=== PATIENT | male | born 1945 | race Two or more races ===

== ENCOUNTER 2017-11-03 17:49 | Emergency (ER) | payer MEDICAID ==
[~2017-11-03] VITALS: Ht 162.6 cm; Wt 70.3 kg
[2017-11-03] MEDS ORDERED: ONDANSETRON ODT 4 MG TAB PO ONE (19:15)
[2017-11-03 20:41] LABS: Basophils # (auto) 0 uL; Eosinophils # (auto) 0 uL; Monocytes # (auto) 0.4 uL; Red Blood Cells 5.29 10^6/uL (4.5-5.90)
[2017-11-03 20:43] LABS: Basophils % (auto) 0.2 % (0.0-2.0); Eosinophils % (auto) 0.2 % (0.0-7.0); Hematocrit 42.3 % (41.0-53.0); Lymphocytes # (auto) 0.8 uL; Mean Corpuscular Hemoglobin 26.5 pg (28.0-32.0); Mean Corpuscular Hgb Conc. 33.1 g/dL (32.0-36.0); Monocytes % (auto) 3.2 % (0.0-12.0); Neutrophils % (auto) 90.4 % (37.0-80.0); Platelet Count (auto) 279 10^3/uL (140-450); Red Cell Distribution Width 17.4 % (11.8-14.3); White Blood Cell 13.3 10^3/uL (4.4-10.8)
[2017-11-03 20:44] LABS: Albumin 3.9 g/dL (3.4-5.0); Bilirubin, Total 0.5 mg/dL (0.2-1.0); Potassium 3.9 mmol/L (3.5-5.1); Total Protein 8.1 g/dL (6.4-8.2)
[2017-11-03 21:00] LABS: INR 0.93 (0.9-1.15); Partial Thromboplastin Time 27.5 sec (23.78-33.04)
[2017-11-03 23:15] VITALS: BP 148/96
== END 2017-11-03 19:45 | disposition short-term general hospital (02) ==
LOC: ER 17:49 → EDBD 17:49 → ER 19:45
DX: S02.119A Unspecified fracture of occiput, initial encounter for closed fracture (principal); W18.39XA Other fall on same level, initial encounter; Y93.89 Activity, other specified; Y92.89 Other specified places as the place of occurrence of the external cause; Y99.8 Other external cause status
CPT/HCPCS: 36415; 70450; 72125; 80053; 85025; 85610; 85730; 99285; Q0162

== ENCOUNTER 2020-12-07 13:22 | Inpatient (IN) | payer MEDICAID ==
[~2020-12-07] VITALS: Ht 162.6 cm; Wt 71.6 kg
[2020-12-07 15:58] LABS: Basophils # (auto) 0 10 ^3/uL (0-0.2); Basophils % (auto) 0.5 % (0.0-2.0); Eosinophils # (auto) 0.2 10 ^3/uL (0-0.8); Eosinophils % (auto) 2.6 % (0.0-7.0); Hematocrit 27.3 % (41.0-53.0); Hemoglobin 8.6 g/dL (13.5-17.5); Lymphocytes # (auto) 1.7 10 ^3/uL (0.4-5.4); Lymphocytes % (auto) 21.8 % (10.0-50.0); Mean Corpuscular Hemoglobin 19.9 pg (28.0-32.0); Mean Corpuscular Hgb Conc. 31.7 g/dL (32.0-36.0); Mean Corpuscular Volume 62.9 fL (80.0-100.0); Monocytes # (auto) 0.7 10 ^3/uL (0-1.3); Monocytes % (auto) 8.3 % (0.0-12.0); Neutrophils # (auto) 5.3 10 ^3/uL (1.6-8.6); Neutrophils % (auto) 66.8 % (37.0-80.0); Nucleated Red Blood Cells % 0.1 %; Red Blood Cells 4.34 10^6/uL (4.5-5.90); Red Cell Distribution Width 19.5 % (11.8-14.3); White Blood Cell 7.9 10^3/uL (4.4-10.8)
[2020-12-07 16:17] LABS: Albumin 3.8 g/dL (3.4-5.0); Calcium 8.5 mg/dL (8.5-10.1); Potassium 3.9 mmol/L (3.5-5.1)
[2020-12-07 16:21] LABS: BUN/Creatinine Ratio 21.9; Bilirubin, Total 0.6 mg/dL (0.2-1.0); Total Protein 7.6 g/dL (6.4-8.2)
[2020-12-07] MEDS ORDERED: IOHEXOL 300 MG/ML 100ML BOTTLE IJ ONE (22:21)
[2020-12-08] MEDS ORDERED: PANTOPRAZOLE 40 MG/10 ML VIAL INJ IV ONE (00:30)
[2020-12-08] MEDS ORDERED: SODIUM CHLORIDE 0.9% 1,000 ML IV SCH (00:30)
[2020-12-08] MEDS ORDERED: ONDANSETRON HCL 4 MG/2 ML VIAL IV PRN ×2 (00:30→00:45)
[2020-12-08] MEDS ORDERED: NITROGLYCERIN 0.4 MG SL TAB SL PRN (00:45)
[2020-12-08] MEDS ORDERED: MORPHINE SULF INJ 2 MG/ML SYRINGE 1ML IV PRN (00:45)
[2020-12-08 01:13] LABS: Hemoglobin 8.5 g/dL (13.5-17.5)
[2020-12-08 01:15] LABS: Hematocrit 27.1 % (41.0-53.0)
[2020-12-08 05:36] LABS: INR 0.99 (0.9-1.15); Partial Thromboplastin Time 26.8 sec (23.0-31.2)
[2020-12-08 09:00] VITALS: BP 133/82
[2020-12-08] MEDS ORDERED: PANTOPRAZOLE 40 MG/10 ML VIAL INJ IV SCH (10:00)
[2020-12-08 12:36] VITALS: BP 143/77
[2020-12-08] MEDS ORDERED: IBUP800T26 PO (13:54)
== END 2020-12-08 16:43 | disposition left against medical advice (07) | DRG 253 ==
LOC: ER 13:22 → TELE 12-08 00:32 → TELE-WESTW 12-08 03:33
PROVIDERS: ADMIT Nurse Practitioner; ATTEND Internal Medicine Pulmonary Disease
DX: K92.2 Gastrointestinal hemorrhage, unspecified (principal); Z20.822 Contact with and (suspected) exposure to COVID-19; D62 Acute posthemorrhagic anemia; Z53.29 Procedure and treatment not carried out because of patient's decision for other reasons
CPT/HCPCS: 36415; 74177; 80053; 82270; 85014; 85018; 85025; 85610; 85730; 86850; 86900; 86901; 87426; 96361; 96374; C9113; G0378

== ENCOUNTER 2021-03-09 13:37 | Inpatient (IN) | payer MEDICAID ==
[~2021-03-09] VITALS: Ht 160 cm; Wt 72.2 kg
[~2021-03-09 13:37] MED LIST: IBUP800T26 PO
[2021-03-09] MEDS ORDERED: ASPirin 81 mg TAB PO ONE (14:00)
[2021-03-09 14:19] LABS: Basophils # (auto) 0 10 ^3/uL (0-0.2); Eosinophils # (auto) 0 10 ^3/uL (0-0.8); Eosinophils % (auto) 0.2 % (0.0-7.0); Lymphocytes # (auto) 0.7 10 ^3/uL (0.4-5.4); Monocytes # (auto) 0.4 10 ^3/uL (0-1.3); Nucleated Red Blood Cells % 0.2 %; Red Blood Cells 5.07 10^6/uL (4.5-5.90); Red Cell Distribution Width 19.2 % (11.8-14.3)
[2021-03-09 14:22] LABS: Basophils % (auto) 0.5 % (0.0-2.0); Hematocrit 29.3 % (41.0-53.0); Hemoglobin 8.8 g/dL (13.5-17.5); Lymphocytes % (auto) 11.9 % (10.0-50.0); Mean Corpuscular Hemoglobin 17.4 pg (28.0-32.0); Mean Corpuscular Hgb Conc. 30.2 g/dL (32.0-36.0); Mean Corpuscular Volume 57.8 fL (80.0-100.0); Monocytes % (auto) 6.4 % (0.0-12.0); Neutrophils # (auto) 4.8 10 ^3/uL (1.6-8.6); White Blood Cell 5.9 10^3/uL (4.4-10.8)
[2021-03-09 15:05] LABS: Albumin 3.8 g/dL (3.4-5.0); Anion Gap 6 (5-15); Blood Urea Nitrogen 16 mg/dL (7-18); Calcium 8.5 mg/dL (8.5-10.1); Carbon Dioxide 23 mmol/L (21-32); Chloride 106 mmol/L (98-107); Glucose 140 mg/dL (74-106); Potassium 3.8 mmol/L (3.5-5.1); Sodium 135 mmol/L (136-145)
[2021-03-09 15:24] LABS: Alanine Aminotransferase 28 U/L (16-61); Alkaline Phosphatase 91 U/L (45-117); Aspartate Aminotransferase 31 U/L (15-37); BUN/Creatinine Ratio 12.2; Bilirubin, Total 0.7 mg/dL (0.2-1.0); GFR African American 68 mL/min; GFR Non-African American 57 mL/min
[2021-03-09] MEDS ORDERED: ACETAMINOPHEN 500 MG TAB PO PRN (18:30)
[2021-03-09] MEDS ORDERED: HYDROcodone-ACET 5/325MG TAB PO PRN (18:30)
[2021-03-09] MEDS ORDERED: hydrALAZINE HCL 20 MG/ML VL IV PRN (18:30)
[2021-03-09] MEDS ORDERED: NITROGLYCERIN 0.4 MG SL TAB SL PRN (18:30)
[2021-03-09] MEDS ORDERED: ONDANSETRON HCL 4 MG/2 ML VIAL IV PRN (18:30)
[2021-03-09] MEDS ORDERED: MORPHINE SULFATE INJECTION 2 MG/ML SYRG IV PRN ×2 (18:30)
[2021-03-09 19:08] LABS: % Iron Saturation 3.2 % (20-55)
[2021-03-09] MEDS: ATORVASTATIN 20 MG TAB PO SCH (23:34)
[2021-03-09] MEDS: METOPROLOL TARTRATE 25 MG TAB PO SCH (23:35)
[2021-03-10 01:50] VITALS: BP 114/82
[2021-03-10 04:45] VITALS: BP 103/63
[2021-03-10 06:14] LABS: Basophils # (auto) 0 10 ^3/uL (0-0.2); Eosinophils # (auto) 0.2 10 ^3/uL (0-0.8); Lymphocytes # (auto) 1.2 10 ^3/uL (0.4-5.4); Mean Corpuscular Volume 58.3 fL (80.0-100.0); Monocytes # (auto) 0.6 10 ^3/uL (0-1.3)
[2021-03-10 06:18] LABS: Basophils % (auto) 0.5 % (0.0-2.0); Eosinophils % (auto) 3.3 % (0.0-7.0); Hematocrit 25.7 % (41.0-53.0); Lymphocytes % (auto) 24.4 % (10.0-50.0); Mean Corpuscular Hemoglobin 18.2 pg (28.0-32.0); Mean Corpuscular Hgb Conc. 31.2 g/dL (32.0-36.0); Monocytes % (auto) 11.8 % (0.0-12.0); Nucleated Red Blood Cells % 0.2 %; Red Blood Cells 4.41 10^6/uL (4.5-5.90); Red Cell Distribution Width 19.1 % (11.8-14.3)
[2021-03-10 06:28] LABS: Partial Thromboplastin Time 28.8 sec (23.6-33.0)
[2021-03-10 06:46] LABS: Anion Gap 8 (5-15); BUN/Creatinine Ratio 17.8; Blood Urea Nitrogen 16 mg/dL (7-18); Calcium 8.3 mg/dL (8.5-10.1); Carbon Dioxide 23 mmol/L (21-32); Chloride 106 mmol/L (98-107); GFR African American 106 mL/min; GFR Non-African American 87 mL/min; Glucose 122 mg/dL (74-106); Potassium 3.7 mmol/L (3.5-5.1); Sodium 137 mmol/L (136-145)
[2021-03-10] MEDS: ASPirin-EC 81 mg tab PO SCH (09:51)
[2021-03-10] MEDS: METOPROLOL TARTRATE 25 MG TAB PO SCH ×2 (09:52→21:56)
[2021-03-10] MEDS: LISINOPRIL 10 MG TAB PO SCH (09:52)
[2021-03-10] MEDS: SODIUM FERR GLUC 62.5MG/5ML 125 MG in SODIUM CHL 0.9% 100 ML IV SCH (13:33)
[2021-03-10] MEDS: ATORVASTATIN 20 MG TAB PO SCH (21:56)
[2021-03-10 22:00] VITALS: BP 130/74
[2021-03-11] VITALS (10 sets, daily range): BP systolic 108–131; BP diastolic 68–77
[2021-03-11] MEDS ORDERED: LIDOCAINE 2%HCL (LOCAL ANESTH.) INJ 20ML MDV ONE (08:49)
[2021-03-11] MEDS ORDERED: IOHEXOL 350 MG/ML 100ML IJ ONE (08:49)
[2021-03-11] MEDS ORDERED: ANGIOMAX 250 MG VIAL IV ONE (09:16)
[2021-03-11] MEDS ORDERED: fentaNYL CITRATE 100 MCG/2 ML VL ONE (09:17)
[2021-03-11] MEDS ORDERED: MIDAZOLAM HCL 2MG/2ML 2ml VIAL (1mg/ml) ONE (09:17)
[2021-03-11] MEDS ORDERED: SODIUM CHL 0.9% 0 ML ONE (09:17)
[2021-03-11] MEDS: ASPirin-EC 81 mg tab PO SCH (12:21)
[2021-03-11] MEDS: LISINOPRIL 10 MG TAB PO SCH (12:22)
[2021-03-11] MEDS: METOPROLOL TARTRATE 25 MG TAB PO SCH ×2 (12:27→22:01)
[2021-03-11] MEDS: SODIUM FERR GLUC 62.5MG/5ML 125 MG in SODIUM CHL 0.9% 100 ML IV SCH (12:50)
[2021-03-11] MEDS: ATORVASTATIN 20 MG TAB PO SCH (22:02)
[2021-03-12 05:00] VITALS: BP 113/65
[2021-03-12 08:26] VITALS: BP 114/69
[2021-03-12] MEDS: ASPirin-EC 81 mg tab PO SCH (10:00)
[2021-03-12] MEDS: METOPROLOL TARTRATE 25 MG TAB PO SCH (10:00)
[2021-03-12] MEDS ORDERED: ATOR40TA52 PO (10:09)
[2021-03-12] MEDS ORDERED: FERR200T3 PO (10:10)
[2021-03-12] MEDS ORDERED: PANT40TA2 PO (10:11)
[2021-03-12] MEDS ORDERED: LISI2.5T47 PO (10:12)
[2021-03-12] MEDS ORDERED: METF-489 PO (10:12)
[2021-03-12 10:37] LABS: Eosinophils # (auto) 0.2 10 ^3/uL (0-0.8); Hemoglobin 8.5 g/dL (13.5-17.5); Lymphocytes # (auto) 1.4 10 ^3/uL (0.4-5.4); Monocytes # (auto) 0.5 10 ^3/uL (0-1.3); Nucleated Red Blood Cells % 0.1 %
[2021-03-12 10:43] LABS: Basophils # (auto) 0 10 ^3/uL (0-0.2); Basophils % (auto) 0.3 % (0.0-2.0); Eosinophils % (auto) 2.5 % (0.0-7.0); Hematocrit 27.4 % (41.0-53.0); Lymphocytes % (auto) 20.3 % (10.0-50.0); Mean Corpuscular Hgb Conc. 31.1 g/dL (32.0-36.0); Mean Corpuscular Volume 57.8 fL (80.0-100.0); Monocytes % (auto) 7.9 % (0.0-12.0); Neutrophils # (auto) 4.6 10 ^3/uL (1.6-8.6); Red Blood Cells 4.74 10^6/uL (4.5-5.90); Red Cell Distribution Width 19.3 % (11.8-14.3); White Blood Cell 6.7 10^3/uL (4.4-10.8)
[2021-03-12] MEDS: LISINOPRIL 10 MG TAB PO SCH (11:38)
[2021-03-12] MEDS: SODIUM FERR GLUC 62.5MG/5ML 125 MG in SODIUM CHL 0.9% 100 ML IV SCH (12:36)
[2021-03-12 14:53] VITALS: BP 114/69
== END 2021-03-12 17:45 | disposition home or self-care (01) | DRG 191 ==
LOC: ER 13:37 → TELE 18:20 → TELE-CENTR 23:46
PROVIDERS: ADMIT Nurse Practitioner Acute Care; ATTEND Internal Medicine Nephrology
PROC: 4A023N7 Measurement of Cardiac Sampling and Pressure, Left Heart, Percutaneous Approach (ICD-10-PCS; principal; 2021-03-11)
PROC: B2111ZZ Fluoroscopy of Multiple Coronary Arteries using Low Osmolar Contrast (ICD-10-PCS; 2021-03-11)
PROC: B2151ZZ Fluoroscopy of Left Heart using Low Osmolar Contrast (ICD-10-PCS; 2021-03-11)
DX: I20.8 Other forms of angina pectoris (principal); N17.9 Acute kidney failure, unspecified; K57.92 Diverticulitis of intestine, part unspecified, without perforation or abscess without bleeding; D50.9 Iron deficiency anemia, unspecified; E66.9 Obesity, unspecified; E11.9 Type 2 diabetes mellitus without complications; I10 Essential (primary) hypertension; K21.9 Gastro-esophageal reflux disease without esophagitis; Z20.822 Contact with and (suspected) exposure to COVID-19; Z83.3 Family history of diabetes mellitus; Z68.28 Body mass index [BMI] 28.0-28.9, adult
CPT/HCPCS: 36415; 71045; 80048; 80053; 82270; 83036; 83540; 83550; 83880; 84484; 85025; 85045; 85610; 85730; 86141; 86850; 86900; 86901; 87426; 93005; 93306; 93458; 99152; G0378; J2250

== ENCOUNTER 2022-09-12 12:49 | Emergency (ER) | payer MEDICAID, OTHER ==
[~2022-09-12] VITALS: Ht 162.6 cm; Wt 155.4 kg
[~2022-09-12 12:49] MED LIST changes: +FERR200T3 PO; -IBUP800T26 PO; +PANT40TA2 PO
[2022-09-12 14:34] VITALS: BP 104/54
[2022-09-12] MEDS ORDERED: ACETAMINOPHEN 500 MG TAB PO ONE (17:15)
[2022-09-12 18:05] LABS: Albumin 3.6 g/dL (3.4-5.0); Calcium 8.8 mg/dL (8.5-10.1); Potassium 4.1 mmol/L (3.5-5.1)
[2022-09-12 18:08] LABS: Bilirubin, Total 0.5 mg/dL (0.2-1.0); Total Protein 8.3 g/dL (6.4-8.2)
[2022-09-12] MEDS ORDERED: ACET1CAP14 PO (18:28)
[2022-09-12] MEDS ORDERED: ALBU108A5 IN (18:28)
[2022-09-12] MEDS ORDERED: LEVO750T64 PO ×2 (18:28)
[2022-09-12] MEDS ORDERED: LIDOCAINE 1% HCL (LOCAL ANESTH.) INJ 20ML MDV ID ONE (18:30)
[2022-09-12] MEDS ORDERED: cefTRIAXone SOD 1,000 MG VL IM ONE (18:30)
[2022-09-12 18:35] LABS: Basophils # (auto) 0 10 ^3/uL (0-0.2); Basophils % (auto) 0.3 % (0.0-2.0); Eosinophils # (auto) 0 10 ^3/uL (0-0.8); Hemoglobin 9.6 g/dL (13.5-17.5); Mean Corpuscular Hemoglobin 17.5 pg (28.0-32.0); Nucleated Red Blood Cells % 0.1 %; Red Blood Cells 5.47 10^6/uL (4.5-5.90)
[2022-09-12 18:37] LABS: Hematocrit 32.3 % (41.0-53.0); Lymphocytes # (auto) 0.7 10 ^3/uL (0.4-5.4); Lymphocytes % (auto) 6.9 % (10.0-50.0); Mean Corpuscular Hgb Conc. 29.6 g/dL (32.0-36.0); Mean Corpuscular Volume 59.1 fL (80.0-100.0); Monocytes # (auto) 0.9 10 ^3/uL (0-1.3); Monocytes % (auto) 9.4 % (0.0-12.0); Neutrophils # (auto) 8.4 10 ^3/uL (1.6-8.6); Neutrophils % (auto) 83.4 % (37.0-80.0); White Blood Cell 10.1 10^3/uL (4.4-10.8)
[2022-09-12 18:39] LABS: Red Cell Distribution Width 20.1 % (11.8-14.3)
== END 2022-09-12 19:08 | disposition home or self-care (01) ==
LOC: ER 12:49
DX: U07.1 COVID-19 (principal); E11.9 Type 2 diabetes mellitus without complications; K21.9 Gastro-esophageal reflux disease without esophagitis; I10 Essential (primary) hypertension
CPT/HCPCS: 36415; 71045; 80053; 83605; 85025; 87426; 87804; 93005; 96372; 99285; J0696; J2001

== ENCOUNTER 2022-09-18 12:56 | Inpatient (IN) | payer MEDICAID ==
[~2022-09-18] VITALS: Ht 167.6 cm; Wt 70.0 kg
[~2022-09-18 12:56] MED LIST changes: +ACET1CAP14 PO; +ALBU108A5 IN; +LEVO750T64 PO
[2022-09-18 13:38] LABS: Basophils # (auto) 0 10 ^3/uL (0-0.2); Eosinophils # (auto) 0 10 ^3/uL (0-0.8); Eosinophils % (auto) 0.4 % (0.0-7.0); Mean Corpuscular Hgb Conc. 30.6 g/dL (32.0-36.0); Monocytes # (auto) 0.6 10 ^3/uL (0-1.3); Nucleated Red Blood Cells % 0.1 %
[2022-09-18 13:39] LABS: Basophils % (auto) 0.1 % (0.0-2.0); Hematocrit 29.5 % (41.0-53.0); Lymphocytes # (auto) 0.6 10 ^3/uL (0.4-5.4); Lymphocytes % (auto) 6.1 % (10.0-50.0); Mean Corpuscular Hemoglobin 17.7 pg (28.0-32.0); Mean Corpuscular Volume 57.8 fL (80.0-100.0); Monocytes % (auto) 5.8 % (0.0-12.0); Neutrophils # (auto) 8.6 10 ^3/uL (1.6-8.6); Neutrophils % (auto) 87.6 % (37.0-80.0); White Blood Cell 9.8 10^3/uL (4.4-10.8)
[2022-09-18 13:40] LABS: Red Cell Distribution Width 20.6 % (11.8-14.3)
[2022-09-18 13:54] LABS: Albumin 3.1 g/dL (3.4-5.0); Calcium 8.5 mg/dL (8.5-10.1); Potassium 4.3 mmol/L (3.5-5.1)
[2022-09-18 13:58] LABS: BUN/Creatinine Ratio 12.4 (10.0-20.0); Bilirubin, Total 0.6 mg/dL (0.2-1.0)
[2022-09-18] MEDS ORDERED: PIPERACILLIN-TAZOB 3.375GM 100 ML IV ONE (14:45)
[2022-09-18] MEDS ORDERED: PANTOPRAZOLE 40 MG/10 ML VIAL INJ IV ONE (15:45)
[2022-09-18] MEDS ORDERED: IPRATROPIUM BROM 0.5 MG/2.5ML INH SOL NEB PRN (15:45)
[2022-09-18] MEDS ORDERED: MORPHINE SULFATE INJ 2 MG/ml SYRG IV PRN (15:45)
[2022-09-18] MEDS ORDERED: ALBUTEROL SULF 2.5 MG/0.5ML(0.5%) NEB SOLN NEB PRN (15:45)
[2022-09-18] MEDS ORDERED: NITROGLYCERIN 0.4 MG SL TAB SL PRN (15:45)
[2022-09-18] MEDS ORDERED: cefTRIAXone 1GM/50ML D5W 50 ML IV ONE (15:45)
[2022-09-18] MEDS ORDERED: DEXTROSE (50%) 50ML SYRG IV PRN (15:45)
[2022-09-18] MEDS ORDERED: ALBUTEROL SULF HFA 90MCG INH 200DOSE IN PRN (15:45)
[2022-09-18 17:02] LABS: Lactic Acid w/Reflex 2.1 mmol/L (0.4-2.0)
[2022-09-18 17:03] LABS: Magnesium 2.3 mg/dL (1.6-2.6)
[2022-09-18 17:12] LABS: CRP High Sensitivity 13.8 mg/dL (< 0.3)
[2022-09-18 17:15] LABS: Thyroid Stimulating Hormone 1.6 uIU/mL (0.358-3.74)
[2022-09-18] MEDS ORDERED: ALBUTEROL SULF 2.5 MG/0.5ML(0.5%) NEB SOLN NEB SCH (18:00)
[2022-09-18] MEDS ORDERED: IPRATROPIUM BROM 0.5 MG/2.5ML INH SOL NEB SCH (18:00)
[2022-09-18] MEDS: InsuLIN REG 1unit/0.01ml Soln (100units/ml) SC SCH ×2 (18:27→22:18)
[2022-09-18] MEDS: ACCU-CHEK COMFORT CURVE STRIP VI SCH ×2 (18:28→22:18)
[2022-09-18] MEDS: ENOXAPARIN SOD 40 MG/0.4 ML SYRINGE SC SCH (22:18)
[2022-09-19] VITALS (8 sets, daily range): BP systolic 114–133; BP diastolic 56–75
[2022-09-19 01:36] LABS: Urine Bacteria NONE SEEN /hpf (None Seen); Urine Blood Negative /uL (Negative); Urine Hyaline Cast FEW /lpf (0 - 2); Urine Mucus FEW (None Seen); Urine Specific Gravity 1.025 (1.001-1.035); Urine WBC 1 /hpf (0 - 3)
[2022-09-19] MEDS ORDERED: ALBUTEROL SULF HFA 90MCG INH 200DOSE IN PRN (06:00)
[2022-09-19 06:13] LABS: Basophils # (auto) 0 10 ^3/uL (0-0.2); Hemoglobin 8.1 g/dL (13.5-17.5); Lymphocytes # (auto) 0.9 10 ^3/uL (0.4-5.4); Mean Corpuscular Hemoglobin 18.1 pg (28.0-32.0); Red Blood Cells 4.49 10^6/uL (4.5-5.90)
[2022-09-19 06:16] LABS: Basophils % (auto) 0.3 % (0.0-2.0); Eosinophils # (auto) 0.2 10 ^3/uL (0-0.8); Eosinophils % (auto) 1.7 % (0.0-7.0); Hematocrit 26.2 % (41.0-53.0); Lymphocytes % (auto) 8.2 % (10.0-50.0); Mean Corpuscular Volume 58.3 fL (80.0-100.0); Monocytes # (auto) 0.8 10 ^3/uL (0-1.3); Monocytes % (auto) 7.2 % (0.0-12.0); Neutrophils # (auto) 8.8 10 ^3/uL (1.6-8.6); Neutrophils % (auto) 82.6 % (37.0-80.0); Nucleated Red Blood Cells % 0.1 %; White Blood Cell 10.7 10^3/uL (4.4-10.8)
[2022-09-19 06:28] LABS: Red Cell Distribution Width 20.7 % (11.8-14.3)
[2022-09-19 06:32] LABS: Potassium 4.1 mmol/L (3.5-5.1)
[2022-09-19] MEDS: ACCU-CHEK COMFORT CURVE STRIP VI SCH ×4 (06:42→21:29)
[2022-09-19] MEDS: InsuLIN REG 1unit/0.01ml Soln (100units/ml) SC SCH ×4 (06:44→21:31)
[2022-09-19 06:51] LABS: Albumin 2.7 g/dL (3.4-5.0); BUN/Creatinine Ratio 12.8 (10.0-20.0); Bilirubin, Total 0.9 mg/dL (0.2-1.0); Calcium 8.5 mg/dL (8.5-10.1)
[2022-09-19] MEDS: cefTRIAXone 1GM/50ML D5W 50 ML IV SCH (08:36)
[2022-09-19] MEDS ORDERED: DexAMETHasone SOD PHOS 10MG/1ML VIAL INJ IV SCH (10:00)
[2022-09-19] MEDS ORDERED: PANTOPRAZOLE 40 MG/10 ML VIAL INJ IV SCH (10:00)
[2022-09-19] MEDS: ENOXAPARIN SOD 40 MG/0.4 ML SYRINGE SC SCH (10:22)
[2022-09-19] MEDS: AZITHROMYCIN 500MG/ 250ML 250 ML IV SCH (10:26)
[2022-09-19 10:47] LABS: % Iron Saturation 3.2 % (20-55)
[2022-09-19] MEDS: guaiFENesin-DM 100/10mg/5ml SYR PO PRN (12:05)
[2022-09-19 13:16] LABS: Hepatitis C Antibody Negative (Negative)
[2022-09-20] MEDS: guaiFENesin-DM 100/10mg/5ml SYR PO PRN (03:28)
[2022-09-20 05:00] VITALS: BP 137/71
[2022-09-20] MEDS: ACCU-CHEK COMFORT CURVE STRIP VI SCH ×4 (06:34→21:19)
[2022-09-20] MEDS: InsuLIN REG 1unit/0.01ml Soln (100units/ml) SC SCH ×4 (06:38→21:19)
[2022-09-20 06:59] LABS: Basophils # (auto) 0 10 ^3/uL (0-0.2); Eosinophils # (auto) 0 10 ^3/uL (0-0.8); Hemoglobin 8.7 g/dL (13.5-17.5); Monocytes # (auto) 0.7 10 ^3/uL (0-1.3)
[2022-09-20 07:01] LABS: Basophils % (auto) 0.2 % (0.0-2.0); Lymphocytes # (auto) 0.8 10 ^3/uL (0.4-5.4); Lymphocytes % (auto) 6.4 % (10.0-50.0); Mean Corpuscular Hemoglobin 18.1 pg (28.0-32.0); Mean Corpuscular Hgb Conc. 31.1 g/dL (32.0-36.0); Monocytes % (auto) 5.5 % (0.0-12.0); Neutrophils # (auto) 10.8 10 ^3/uL (1.6-8.6); Neutrophils % (auto) 87.9 % (37.0-80.0); Red Blood Cells 4.82 10^6/uL (4.5-5.90); White Blood Cell 12.3 10^3/uL (4.4-10.8)
[2022-09-20 07:02] LABS: Red Cell Distribution Width 20.5 % (11.8-14.3)
[2022-09-20 07:16] LABS: Calcium 8.6 mg/dL (8.5-10.1); Potassium 4.6 mmol/L (3.5-5.1)
[2022-09-20 07:19] LABS: BUN/Creatinine Ratio 15.5 (10.0-20.0)
[2022-09-20 08:05] VITALS: BP 156/79
[2022-09-20] MEDS: DexAMETHasone SOD PHOS 10MG/1ML VIAL INJ IV SCH (09:20)
[2022-09-20] MEDS: PANTOPRAZOLE 40 MG TAB PO SCH (09:20)
[2022-09-20] MEDS: cefTRIAXone 1GM/50ML D5W 50 ML IV SCH (09:20)
[2022-09-20] MEDS: ENOXAPARIN SOD 40 MG/0.4 ML SYRINGE SC SCH (09:21)
[2022-09-20 12:00] VITALS: BP 136/78
[2022-09-20] MEDS: ZINC SULFATE 220mg CAP or TAB PO SCH (12:03)
[2022-09-20] MEDS: ASCORBIC ACID 500 MG TAB PO SCH (12:04)
[2022-09-20] MEDS: AZITHROMYCIN 500MG/ 250ML 250 ML IV SCH (12:05)
[2022-09-20] MEDS: SODIUM FERR GLUC 62.5MG/5ML 125 MG in SODIUM CHL 0.9% 100 ML IV SCH (13:30)
[2022-09-20 16:05] VITALS: BP 133/73
[2022-09-20 22:00] VITALS: BP 130/66
[2022-09-21 05:00] VITALS: BP 138/77
[2022-09-21] MEDS: ACCU-CHEK COMFORT CURVE STRIP VI SCH ×2 (07:00→11:30)
[2022-09-21 09:00] VITALS: BP 146/77
[2022-09-21] MEDS ORDERED: FERR-20 PO (09:30)
[2022-09-21] MEDS ORDERED: ASCO500T11 PO (09:30)
[2022-09-21] MEDS ORDERED: DEXA6TAB6 PO (09:30)
[2022-09-21] MEDS ORDERED: AZIT500T PO (09:30)
[2022-09-21] MEDS: ASCORBIC ACID 500 MG TAB PO SCH (10:08)
[2022-09-21] MEDS: ZINC SULFATE 220mg CAP or TAB PO SCH (10:09)
[2022-09-21] MEDS: PANTOPRAZOLE 40 MG TAB PO SCH (10:09)
[2022-09-21] MEDS: DexAMETHasone SOD PHOS 10MG/1ML VIAL INJ IV SCH (10:09)
[2022-09-21] MEDS: ENOXAPARIN SOD 40 MG/0.4 ML SYRINGE SC SCH (10:09)
[2022-09-21] MEDS: cefTRIAXone 1GM/50ML D5W 50 ML IV SCH (10:09)
[2022-09-21] MEDS: AZITHROMYCIN 500MG/ 250ML 250 ML IV SCH (10:10)
[2022-09-21] MEDS: InsuLIN REG 1unit/0.01ml Soln (100units/ml) SC SCH (12:41)
[2022-09-21 13:00] VITALS: BP 146/75
[2022-09-21] MEDS: SODIUM FERR GLUC 62.5MG/5ML 125 MG in SODIUM CHL 0.9% 100 ML IV SCH (13:30)
== END 2022-09-21 16:20 | disposition home or self-care (01) | DRG 137 ==
LOC: ER 12:56 → TELE 15:40 → TELE-CENTR 22:42 → CENTRAL 09-19 11:53 → TELE-CENTR 09-19 21:43 → CENTRAL 09-19 21:44
PROVIDERS: ADMIT Registered Nurse; ATTEND Internal Medicine
DX: U07.1 COVID-19 (principal); J12.82 Pneumonia due to coronavirus disease 2019; D63.8 Anemia in other chronic diseases classified elsewhere; E78.5 Hyperlipidemia, unspecified; E11.9 Type 2 diabetes mellitus without complications; D50.9 Iron deficiency anemia, unspecified; I10 Essential (primary) hypertension; K21.9 Gastro-esophageal reflux disease without esophagitis
CPT/HCPCS: 36415; 71045; 71250; 80048; 80053; 80061; 81001; 82306; 82728; 82962; 83036; 83540; 83550; 83605; 83615; 83735; 84443; 84484; 85025; 85379; 86141; 86803; 87040; 87340; 87426; 93005; 94640; 96365; 96375; C9113; G0378; J0696; J1100; J1815; J2543

== ENCOUNTER 2023-09-28 13:36 | Emergency (ER) | payer MEDICAID ==
[~2023-09-28] VITALS: Ht 162.6 cm; Wt 74.9 kg
[~2023-09-28 13:36] MED LIST changes: +ASCO500T11 PO; +AZIT500T PO; +DEXA6TAB6 PO; -FERR200T3 PO; +FERR325T24 PO; -LEVO750T64 PO; -PANT40TA2 PO
[2023-09-28 14:12] LABS: Urine Bacteria None Seen /hpf (None Seen)
[2023-09-28 14:33] LABS: Urine Blood Negative /uL (Negative); Urine Clarity Clear (Clear); Urine Color Yellow (Yellow); Urine Mucus FEW (None Seen); Urine Protein, UAD Negative (Negative); Urine Specific Gravity 1.022 (1.001-1.035); Urine Urobilinogen Normal (Negative); Urine WBC 1 /hpf (0 - 3)
[2023-09-28 14:38] VITALS: TEMP 98.1
[2023-09-28 15:38] LABS: Basophils # (auto) 0.1 10 ^3/uL (0-0.2); Basophils % (auto) 0.6 % (0.0-2.0); Eosinophils # (auto) 0.2 10 ^3/uL (0-0.8); Eosinophils % (auto) 1.8 % (0.0-7.0); Hematocrit 33.7 % (41.0-53.0); Hemoglobin 10.3 g/dL (13.5-17.5); Lymphocytes # (auto) 1.5 10 ^3/uL (0.4-5.4); Lymphocytes % (auto) 16.6 % (10.0-50.0); Mean Corpuscular Hemoglobin 19.8 pg (28.0-32.0); Mean Corpuscular Hgb Conc. 30.6 g/dL (32.0-36.0); Mean Corpuscular Volume 64.6 fL (80.0-100.0); Monocytes # (auto) 0.5 10 ^3/uL (0-1.3); Monocytes % (auto) 5.8 % (0.0-12.0); Neutrophils # (auto) 6.6 10 ^3/uL (1.6-8.6); Neutrophils % (auto) 75.2 % (37.0-80.0); Red Blood Cells 5.21 10^6/uL (4.5-5.90); Red Cell Distribution Width 19.8 % (11.8-14.3); White Blood Cell 8.8 10^3/uL (4.4-10.8)
[2023-09-28 15:59] LABS: Alanine Aminotransferase 19 U/L (7-40); Albumin 4.6 g/dL (3.2-4.8); Alkaline Phosphatase 133 U/L (46-116); Anion Gap 6 (5-15); Aspartate Aminotransferase 23 U/L (13-40); BUN/Creatinine Ratio 17.2 (10.0-20.0); Bilirubin, Total 0.6 mg/dL (0.2-1.0); Blood Urea Nitrogen 15 mg/dL (9-23); Calcium 9.9 mg/dL (8.5-10.1); Carbon Dioxide 27 mmol/L (20-30); Chloride 109 mmol/L (98-107); Glucose 99 mg/dL (74-106); Potassium 3.9 mmol/L (3.5-5.1); Sodium 142 mmol/L (136-145); Total Protein 7.3 g/dL (5.7-8.2)
[2023-09-28 16:25] LABS: INR 0.97 (0.9-1.15); Partial Thromboplastin Time 27.4 SEC (24.5-34.5); Prothrombin Time 10.3 sec (9.3-11.8)
[2023-09-28] MEDS: IOHEXOL 300 MG/ML 100ML BOTTLE IJ ONE (16:30)
[2023-09-28] MEDS ORDERED: PHENSUP38 PR (17:48)
[2023-09-28 18:37] VITALS: BP 152/84; PULSE 66; RESP 16; O2SAT 97
== END 2023-09-28 18:38 | disposition home or self-care (01) ==
LOC: ER 13:36
DX: K64.9 Unspecified hemorrhoids (principal); E11.9 Type 2 diabetes mellitus without complications; K21.9 Gastro-esophageal reflux disease without esophagitis; I10 Essential (primary) hypertension
CPT/HCPCS: 36415; 74177; 80053; 81001; 84484; 85025; 85610; 85730; 99285; Q9967

== ENCOUNTER 2025-03-12 15:18 | Emergency (ER) | payer MEDICAID ==
[~2025-03-12] VITALS: Ht 162.6 cm; Wt 70.3 kg
[~2025-03-12 15:18] MED LIST changes: +PHENSUP38 PR
[2025-03-12 15:20] VITALS: BP 156/94; PULSE 65; RESP 15; TEMP 97.3; O2SAT 97
[2025-03-12] MEDS: TETRACAINE HCL 0.5% OPTH(EYE) SOLN 4ML LEFTEYE ONE (18:41)
[2025-03-12] MEDS: FLUORESCEIN SOD OPTH TEST STRIP LEFTEYE ONE (18:41)
[2025-03-12] MEDS ORDERED: ERY05OO OP (19:18)
--- NOTE | 2025-03-12 19:18 | ED.PDOC ---
Eye-HPI HPI Comments 79-year-old male presents to ER with complaints of foreign body to left eye x2 days. Patient reports that he started experiencing redness/clear drainage and foreign body sensation to left eye two days ago that started after he was grinding metal. States he was not wearing any protective eyewear and rates his current left eye pain a 10/10. Patient presents to ER ambulatory on arrival, with steady gait, in no distress. Denies vision changes, skin changes, use of glasses/contacts, headache or any further symptoms/complaints Chief Complaint: Eye Problem Time Seen by MD: 18:12 Primary Care Provider: NONE Reviewed Notes: Nurses Notes, Medications, Allergies Allergies: Coded Allergies: NO KNOWN ALLERGIES (Unverified , 06/26/13) Home Meds Active Scripts Erythromycin (Erythromycin) 5 Mg/Gm Oin, 1 MG OP 6XD, #1 OIN 1 Refill Prov:DIGNA ERVIN 03/12/25 Phenylephrine-Shark Liver Oil- (Hemorrhoidal Suppositorie 0.25-3-85.5 %) 1 Sup Sup, 1 SUP NH BID, #30 SUPP Prov:KENDRA ARRIAGA PAC 09/28/23 Dexamethasone (Decadron) 6 Mg Tab, 4 MG PO QAM for 5 Days, #4 TAB Prov:LAXMI BAKER MD 09/21/22 Azithromycin (Zithromax) 500 Mg Tab, 500 MG PO DAILY for 5 Days, #5 TAB Prov:LAXMI BAKER MD 09/21/22 Ferrous Sulfate (Ferrous Sulfate) 325 Mg Tab, 325 MG PO BID for 30 Days, #60 TAB 2 Refills Prov:LAXMI BAKER MD 09/21/22 Ascorbic Acid (VITAMIN C TABLET) 500 Mg Tb, 500 MG PO DAILY for 30 Days, #30 TAB Prov:LAXMI BAKER MD 09/21/22 Acetaminophen (Tylenol) 325 Mg Cap, 325 MG PO Q4HPRN PRN, #30 CAP 0 Refills Take 1-2 caps po q4h prn for pain/fever (Do not exceed 3,000mg of acetaminophen in 24 hours) Prov:AREN RIGGS SAMPLER TESTER 09/12/22 Albuterol Sulfate (Albuterol Sulfate Hfa) 108 Mcg/Act Aer, 2 PUFF IN Q4HPRN PRN, #1 INHALER 0 Refills Prov:AREN RIGGS [facility] 09/12/22 Information Source: Patient Mode of Arrival: Ambulatory Past Medical History PAST MEDICAL HISTORY: Anemia, DM, GERD, HTN Surgical History: Tonsillectomy Family History Family History: Family hx of DM Social History Smoker: Non-Smoker Alcohol: Denies ETOH Use Drugs: Denies Drug Use Lives In: Home Constitutional: denies: chills, diaphoresis, fatigue, fever, malaise, sweats, weakness, others EENTM: reports: others (As stated in HPI) Respiratory: denies: cough, hemoptysis, orthopnea, SOB at rest, shortness of breath, SOB with excertion, stridor, wheezing, others Cardiovascular: denies: chest pain, dizzy spells, diaphoresis, Dyspnea on exertion, edema, irregular heart beat, left arm pain, lightheadedness, palpitations, PND, syncope, others Gastrointestinal: denies: abdomen distended, abdominal pain, blood streaked bowels, constipated, diarrhea, dysphagia, difficulty swallowing, hematemesis, melena, nausea, poor appetite, poor fluid intake, rectal bleeding, rectal pain, vomiting, others Genitourinary: denies: burning, dysuria, flank pain, frequency, hematuria, incontinence, penile discharge, penile sore, pain, testicle pain, testicle swelling, urgency, others Neurological: denies: dizziness, fainting, headache, left sided numbness, left sided weakness, numbness, paresthesia, pre-existing deficit, right sided numbness, right sided weakness, seizure, speech problems, tingling, tremors, w eakness, others Musculoskeletal: denies: back pain, gout, joint pain, joint swelling, muscle pain, muscle stiffness, neck pain, others Integumetry: denies: bruises, change in color, change in hair/nails, dryness, laceration, lesions, lumps, rash, wounds, others Allergic/Immunocompromised: denies: Difficulty Healing, Frequent Infections, Hives, Itching, others Hematologic/Lymphatic: denies: anemia, blood clots, easy bleeding, easy bruising, swollen glands, others Endocrine: denies: excessive hunger, excessive sweating, excessive thirst, excessive urination, flushing, intolerance to cold, intolerance to heat, unexplained weight gain, unexplained weight loss, others Psychiatric: denies: anxiety, bipolar disorder, depression, hopeless, panic disorder, schizophrenia, sleepless, suicidal, others Physical Exam General Appearance: No Apparent Distress HEENT: PERRL/EOMI, Pharynx Normal, TMs Normal, Other ([place] examination left eye-subconjunctival injection, minimal clear drainage and small non metallic appearing black foreign body noted to left eye, no other foreign body appreciated, no Ivy sign. No skin changes to left upper/lower eyelid noted) Neck: Full Range of Motion, Non-Tender, Normal Respiratory: Chest Non-Tender, Lungs Clear, No Accessory Muscle Use, No Respiratory Distress, Normal Breath Sounds Cardiovascular: No Murmur, No Gallop, Regular Rate/Rhythm Breast Exam: Deferred Gastrointestinal: NOT DONE Genitalia: Deferred Pelvic: Deferred Rectal: Deferred Extremities: Normal capillary refill, Normal range of motion Neurologic: Alert, ocular pathologist II-XII nml as Tested, No Motor Deficits, Normal Affect, Normal Mood, No Sensory Deficits Cerebellar Function: Normal Reflexes: Normal Skin: Dry, Normal Color, Warm Lymphatic: No Adenopathy Was a procedure done? Was a procedure done?: Yes Sedation Sedation?: No Foreign Body Removal Foreign body in: Eye (Left eye) Anesthetic: Other (Tetracaine ophthalmic) Procedure: Identified, Removed (Small black non metallic foreign body removed from left eye using a cotton swab. Patient tolerated well without any complication, no other foreign bodies appreciated) Informed consent obtained: Yes Risks/benefits/alt described: Yes EENT DIFF Eye: Corneal Lacerations, Corneal Ulceration, Globe Rupture, Orbital Cellulits, Periorbital Cellulits X-Ray, Labs, Meds, VS Vital Signs Date Time Temp Pulse Resp B/P (MAP) Pulse Ox O2 Delivery O2 Flow Rate FiO2 03/12/25 19:23 Room Air* 0 21 03/12/25 15:20 97.3 65 15 156/94 97 97.3 Fluorescein stain ophthalmic ordered Tetracaine ophthalmic ordered Erythromycin ointment ordered Patient had improvement in symptoms and in no distress prior to discharge Advised to follow up with PCP and Ophthalmology in 1-2 days Patient verbalized understanding and agreeable with current plan of care Advised to return to ER immediately if symptoms worsen Time of 1ST Reevaluation: 18:54 Reevaluation 1ST: N/A Patient Education/Counseling: Diagnosis, Treatment, Prognosis, Need For Follow Up Family Education/Counseling: No Family Present SEPSIS Sepsis Screen Date sepsis recognized/suspect: Mar 12, 2025 Time Sepsis recognized/suspect: 1522 Recent Procedure: No On Antibiotic Therapy: No Respiratory Rate >20: No Heart Rate >90: No Temp<36 C (96.8 F) or >38.3 C: No SBP <90 or MAP <65 mmHG: No New Acute Mental Status Change: No Is the patient on CPAP, BIPAP,: No Physician Orders Erythromy Opth Oint 5mg/Gm 1gm (03/12/25 19:30) Vital Signs Date Time Temp Pulse Resp B/P (MAP) Pulse Ox O2 Delivery O2 Flow Rate FiO2 03/12/25 19:23 Room Air* 0 21 03/12/25 15:20 97.3 65 15 156/94 97 97.3 Departure 1 Departure Time of Disposition: 19:10 Impression: Primary Impression: Foreign body of left eye Qualified Codes: T15.92XA - Foreign body on external eye, part unspecified, left eye, initial encounter Disposition: HOME / SELF CARE / HOMELESS Condition: Stable e-Prescriptions Erythromycin (Erythromycin) 5 Mg/Gm Oin 1 MG OP 6XD, #1 OIN 1 Refill Prov: DIGNA ERVIN 03/12/25 Discharged With: Friend Critical Care Note Critical Care Time?: No Stability Stability form required: No Heart Score Heart Score: Heart Score Response (Comments) Value History N/A 0 EKG N/A 0 Age N/A 0 Risk Factors N/A 0 Troponin N/A 0 Total 0 DIGNA ERVIN Mar 12, 2025 19:18
[2025-03-12] MEDS: ERYTHROMY OPTH OINT 5mg/gm 1gm or 3.5gm tube OP ONE (19:37)
== END 2025-03-12 19:38 | disposition home or self-care (01) ==
LOC: ER 15:18
DX: T15.92XA Foreign body on external eye, part unspecified, left eye, initial encounter (principal); I10 Essential (primary) hypertension; E11.9 Type 2 diabetes mellitus without complications; D46.9 Myelodysplastic syndrome, unspecified; Z90.89 Acquired absence of other organs; W44.9XXA Unspecified foreign body entering into or through a natural orifice, initial encounter; Y93.89 Activity, other specified; Y92.89 Other specified places as the place of occurrence of the external cause; Y99.8 Other external cause status
CPT/HCPCS: 65205